=== PATIENT | male | born 1955 | race Hispanic/Latino ===

== ENCOUNTER 2020-06-10 11:03 | Emergency (ER) | payer BC, OTHER, SELFPAY ==
[2020-06-10 11:46] LABS: BASOPHILS % (AUTO) 0.5 % (0.0-5.0); EOSINOPHILS % (AUTO) 0.3 % (0.0-8.0); HEMATOCRIT 47.4 % (42-54); LYMPHOCYTES % (AUTO) 11.1 % (21.0-51.0); MEAN CORPUSCULAR HEMOGLOBIN 29.7 pg (27.0-33.0); MEAN CORPUSCULAR HGB CONC 35.2 g/dL (32.0-36.0); MEAN CORPUSCULAR VOLUME 84.2 fL (79-99); MONOCYTES % (AUTO) 6.2 % (3.0-13.0); NEUTROPHILS % (AUTO) 80.3 % (40.0-77.0); PLATELET COUNT (AUTO) 442 K/uL (130-400); RED BLOOD CELL COUNT(AUTO) 5.63 MIL/uL (4.50-6.20); RED CELL DISTRIBUTION WIDTH 12.1 % (11.0-15.5); WHITE BLOOD COUNT (AUTO) 8.8 K/uL (4.8-10.8)
[2020-06-10 11:50] LABS: APPEARANCE,URINE Clear (CLEAR); BILIRUBIN,URINE Negative (NEGATIVE); COLOR,URINE Yellow (YELLOW); GLUCOSE, URINE (UA) Negative (NEGATIVE); KETONES,URINE Trace mg/dL (NEGATIVE); LEUKOCYTE ESTERASE ,URINE Trace (NEGATIVE); NITRATE,URINE Negative (NEGATIVE); OCCULT BLOOD,URINE Negative (NEGATIVE); PROTEIN,URINE Negative (NEGATIVE)
[2020-06-10 11:54] LABS: CREATININE 0.9 mg/dL (0.5-1.5); POTASSIUM 4.4 mmol/L (3.5-5.1)
[2020-06-10 11:58] LABS: ALBUMIN 3.7 g/dL (3.5-5.0); BILIRUBIN,TOTAL 0.7 mg/dL (0.2-1.0); TOTAL PROTEIN, SERUM 7.2 g/dL (6.0-8.3)
[2020-06-10 12:02] LABS: INR 1.04 (0.85-1.15); PROTHROMBIN TIME 11.3 SEC (9.6-11.6)
[2020-06-10 12:03] LABS: PARTIAL THROMBOPLASTIN TIME 24.8 SEC (26.3-35.5)
[2020-06-10 12:10] LABS: BACTERIA,URINE Rare /HPF (None Seen); RBC,URINE 0-1 /HPF (0-1); SQUAMOUS EPITHELIAL CELL,UR Rare /HPF (0-2); WBC,URINE 0-1 /HPF (0-1)
[2020-06-10] MEDS ORDERED: ACETAMINOPHEN 325 MG TAB ONE (13:33)
[2020-06-10 15:26] LABS: ABG HCO3 24.7 mmol/L (21.0-28.0); ABG OXYGEN SATURATION 95.1 % (95.0-99.0); ABG PCO2 37 mmHg (35-48)
[2020-06-10] MEDS ORDERED: ONDANSETRON 4MG INJ ONE (16:47)
[2020-06-10] MEDS ORDERED: IBUPROFEN 600 MG TABLET ONE (16:48)
[2020-06-10] MEDS ORDERED: MORPHINE 2 MG SYG ONE (16:48)
[2020-06-10] MEDS ORDERED: IOHEXOL-350 75 ML VIAL IV ONE (17:52)
[2020-06-10 18:23] LABS: APPEARANCE,CSF HAZY (CLEAR); CSF TUBE NUMBER 1
[2020-06-10 18:24] LABS: COLOR,CSF PINK (COLORLESS); RED BLOOD CELL1,CSF 2125 CMM (0-0); WHITE BLOOD CELL1,CSF 3 CMM (0-5)
[2020-06-10 18:38] LABS: APPEARANCE2,CSF CLEAR (CLEAR); COLOR2,CSF COLORLESS (COLORLESS); CSF 2ND TUBE NUMBER 4
[2020-06-10 18:41] LABS: GLUCOSE, CSF 79 mg/dL (40-70); TOTAL PROTEIN, CSF 47 mg/dL (15-45)
[2020-06-10] MEDS ORDERED: PROCHLORPERAZINE 10MG/2ML INJ ONE (22:32)
== END 2020-06-11 00:47 | disposition home or self-care (01) ==
LOC: EDH 11:03
DX: U07.1 COVID-19 (principal); G43.009 Migraine without aura, not intractable, without status migrainosus; I10 Essential (primary) hypertension; E11.9 Type 2 diabetes mellitus without complications; E78.5 Hyperlipidemia, unspecified
CPT/HCPCS: 36415; 36600; 62270; 70450; 71045; 71275; 80053; 81001; 82140; 82550; 82803; 82945; 83605; 83690; 84145; 84157; 84484; 85025; 85378; 85610; 85730; 87040; 87071; 87147; 87205; 87210; 87252; 87426; 89051 ×2; 93005; 96374; 96375; 99285; J0780; J2405; Q9967; U0003